=== PATIENT | male | born 1975 | race Caucasian/White ===

== ENCOUNTER 2021-09-27 18:16 | Emergency (ER) | payer MEDICAID ==
[2021-09-27 18:30] VITALS: BP_SYST 98
--- NOTE | 2021-09-27 18:30 | NUR ---
PATIENT LEFT WITHOUT BEING SEEN BY DR. JULES. NO FURTHER CARE PROVIDED FOR PATIENT.
--- NOTE | 2021-09-27 18:30 | NUR ---
PATIENT LEFT WITHOUT BEING SEEN BY DR. JULES. NO FURTHER CARE PROVIDED FOR PATIENT.
--- NOTE | 2021-09-27 18:42 | NUR ---
Yvan briceno in ED - 09/27/21 at 1848 by [id number] MARY. HANDED ON URINE CUP.
== END 2021-09-27 18:30 | disposition left against medical advice (07) ==
LOC: MED 18:16
DX: M79.606 Pain in leg, unspecified (principal); Z53.21 Procedure and treatment not carried out due to patient leaving prior to being seen by health care provider